=== PATIENT | male | born 1945 | race Caucasian/White ===

== ENCOUNTER 2019-11-20 09:21 | Inpatient (IN) ==
[2019-11-20] MEDS ORDERED: CeFAZolin Syr 2,000MG/20 ML 2,000 MG/20 ML SYRINGE IVPB ONE (09:47)
[2019-11-20] MEDS ORDERED: Ringers Solution, Lactated 1,000 ML IVC SCH (10:00)
[2019-11-20] MEDS ORDERED: *HR* Labetalol 20 MG/4 ML SYRINGE IVP PRN (10:04)
[2019-11-20] MEDS ORDERED: *HR* Promethazine 25 MG/ML VIAL IVP PRN (10:04)
[2019-11-20 10:46] LABS: Prothrombin Time 11.4 Seconds (9.4-12.1)
[2019-11-20] MEDS ORDERED: Ethanol\\Acetic Acid\\Na Ace\\Ben 1,000 ML IRRIG.SOLN IR ONE (10:53)
[2019-11-20] MEDS ORDERED: Vancomycin 1,000 MG VIAL ONE (10:53)
[2019-11-20] MEDS ORDERED: EPHEDrine 50 MG/ML VIAL ONE (11:35)
[2019-11-20] MEDS ORDERED: *HR* Rocuronium Bromide 50 MG/5 ML VIAL ONE (11:36)
[2019-11-20] MEDS ORDERED: Ondansetron 4 MG/2 ML VIAL ONE (11:36)
[2019-11-20] MEDS ORDERED: Dexamethasone 4 MG/ML VIAL ONE (11:36)
[2019-11-20] MEDS ORDERED: *HR* FentaNYL (PF) 100 MCG/2 ML VIAL ONE (11:36)
[2019-11-20] MEDS ORDERED: Lidocaine -MPF 4% 5 ML AMPUL ONE (11:36)
[2019-11-20] MEDS ORDERED: Lidocaine -MPF 2% 2 ML VIAL ONE (11:36)
[2019-11-20] MEDS ORDERED: *HR* Propofol 200 MG/20 ML VIAL IVP ONE (11:36)
[2019-11-20] MEDS ORDERED: *HR* PHENYLEPHRINE 1,000 MCG/10 ML SYRINGE IVP ONE (11:36)
[2019-11-20] MEDS ORDERED: *HR* Labetalol 20 MG/4 ML SYRINGE IVP ONE (11:59)
[2019-11-20] MEDS: *HR* HYDROmorphone (PF) 1 MG/ML SYRINGE IVP PRN ×2 (13:07→13:20)
[2019-11-20 13:11] LABS: Hematocrit 41.7 % (37.5-50.1); Hemoglobin 13.5 g/dL (12.9-16.9)
[2019-11-20] MEDS ORDERED: Sennosides 8.6 MG TABLET PO PRN (14:27)
[2019-11-20] MEDS ORDERED: D5% in Water 1,000 ML IVC PRN (14:27)
[2019-11-20] MEDS ORDERED: Naloxone 0.4 MG/ML INJ IVP PRN (14:27)
[2019-11-20] MEDS ORDERED: Ondansetron 4 MG/2 ML VIAL IVP PRN (14:27)
[2019-11-20] MEDS ORDERED: *HR* Dextrose 50 % in Water (Vial) 50 ML VIAL IVP PRN (14:27)
[2019-11-20] MEDS ORDERED: *HR* HYDROcodone/Acet 10/325 mg TABLET PO PRN (14:27)
[2019-11-20] MEDS ORDERED: MOM Conc 10 ML UD.LIQ PO PRN (14:27)
[2019-11-20] MEDS ORDERED: Dextrose Gel 15 GM/37.5 ML TUBE PO PRN ×2 (14:27)
[2019-11-20] MEDS ORDERED: *HR* HYDROcodone/Acet 5/325 mg TABLET PO PRN (14:27)
[2019-11-20] MEDS: Ringers Solution, Lactated 1,000 ML IVC SCH ×2 (16:05→21:57)
[2019-11-20] MEDS: Insulin LISPRO 300 UNITS/3 ML VIAL SQ SCH ×2 (16:05→18:49)
[2019-11-20] MEDS ORDERED: *HR* Enoxaparin 60 MG/0.6 ML SYRINGE SQ ONE (18:00)
[2019-11-20] MEDS ORDERED: *HR* Warfarin 5 MG TABLET PO SCH (18:00)
[2019-11-20] MEDS ORDERED: *HR* Enoxaparin 30 MG/0.3 ML SYRINGE SQ SCH ×2 (18:00)
[2019-11-20] MEDS ORDERED: *HR* Enoxaparin 80 MG/0.8 ML SYRINGE SQ SCH (18:00)
[2019-11-20] MEDS: CeFAZolin 2 GM/120 ML BAG IVPB SCH (18:49)
[2019-11-20] MEDS ORDERED: Insulin LISPRO 300 UNITS/3 ML VIAL SQ SCH (21:00)
[2019-11-20] MEDS: Metoprolol XL (24 HR) Succ 25 MG TAB.ER.24H PO SCH (21:01)
[2019-11-21] MEDS: CeFAZolin 2 GM/120 ML BAG IVPB SCH (03:08)
[2019-11-21] MEDS ORDERED: *HR* Enoxaparin 80 MG/0.8 ML SYRINGE SQ SCH (06:00)
[2019-11-21 06:45] LABS: INR 1.1; Prothrombin Time 12.7 Seconds (9.4-12.1)
[2019-11-21 06:55] LABS: Hematocrit 38.5 % (37.5-50.1); Hemoglobin 12.3 g/dL (12.9-16.9)
[2019-11-21 07:02] LABS: BUN/Creatinine Ratio 14 (6-26); Blood Urea Nitrogen 14 mg/dL (8-23); Calcium 8.4 mg/dL (8.6-10.3); Carbon Dioxide 23 mEq/L (23-29); Chloride 108 mEq/L (98-107); Glucose 132 mg/dL (70-105); Osmolality,Calculated 286 (280-300); Potassium 3.9 mEq/L (3.5-5.1); Sodium 137 mEq/L (136-145); eGFR For African Americans > 60 (> 60); eGFR For Non-African Americans > 60 (> 60)
[2019-11-21 07:12] VITALS: BP 114/58
[2019-11-21] MEDS: Insulin LISPRO 300 UNITS/3 ML VIAL SQ SCH (08:00)
[2019-11-21] MEDS: Metoprolol XL (24 HR) Succ 25 MG TAB.ER.24H PO SCH (08:07)
[2019-11-21] MEDS ORDERED: Multivit/Ca/Min/Fe/FA 1 TAB TABLET PO SCH (09:00)
[2019-11-21] MEDS ORDERED: Aspirin Enteric Coated 325 MG Tablet PO SCH (09:00)
== END 2019-11-21 10:35 | disposition home or self-care (01) | DRG 483 ==
LOC: SAMDAY 09:21 → 3NENU 14:08
PROVIDERS: ADMIT Orthopaedic Surgery; ATTEND Orthopaedic Surgery